=== PATIENT | male | born 1930 | race American Indian/Alaskan Native ===

== ENCOUNTER 2017-10-04 12:57 | Inpatient (IN) | payer MEDICARE ==
[2017-10-04 12:58] VITALS: BMI 23.0
[2017-10-04] MEDS ORDERED: Valproate 1,000 MG in Sodium Chloride 0.9% 100 ML IVPB STA (13:08)
--- NOTE | 2017-10-04 13:14 | EDPD ---
HPI Stroke - General Time Seen by Provider: 10/04/17 12:58 Historian: Family, EMS - History of Present Illness Narrative History of Present Illness (Free Text): 10/04/17 13:10 86 year old male, with past medical history of dementia, hypertension, scrotal hernia, metastatic cancer to bone, prostrate cancer, hypoglycemia, pneumonia and hip fracture, presents to the Emergency department via EMS for left sided facial twitching and decrease in mental status an hour ago. As per EMS, patient was found by daughter at home who noticed left sided facial twitching and decrease in mental status. Upon arrival of EMS, patient was supposedly symptomatic and demonstrated difficulty communicating. Code stroke was called pre-arrival to patient. Immediate evaluation performed upon arrival of patient to the Emergency department. As per daughter, patient was discharged from [facility] for decubitus on lower back two days ago. Daughter denies any slurred speech, unilateral weakness, fever, chills, nausea, vomiting, abdominal pain, chest pain, shortness of breath or any other complaints. Timing: Other (questionable symptoms) Context: Home Associated Symptoms: other (left sided twitching) Exacerbated by: Nothing Relieved by: Nothing - Location Location: Mental Status Locate Left: Face rTPA Inclusion/Exclusion - Refusal of Treatment Patient Refused Treatment: No - Inclusion Criteria for Altepase Patient is 18 years or Older: Yes The Clinical Diagnosis of Ischemic Stroke That is Causing a Potentially Disabling Neurological Deficit: No Time of Onset is Well Established to be Less Than 270 Minute Before Treatment Would Begin: Yes Risk/Benefit Discussed With Patient/Family Member Present: No Past Medical History - Provider Review Nursing Documentation Reviewed: Yes - Cardiac Hx Hypertension: Yes Hx Peripheral Edema: Yes - Pulmonary Hx Respiratory Disorders: No - Neurological Hx Neurological Disorder: No - HEENT Hx HEENT Disorder: No - Renal Hx Renal Disorder: No - Endocrine/Metabolic Hx Endocrine Disorders: Yes Hx Diabetes Mellitus Type 2: Yes - Hematological/Oncological Hx Blood Disorders: Yes Hx Cancer: Yes (prostate) - Integumentary Hx Dermatological Disorder: No - Musculoskeletal/Rheumatological Hx Falls: Yes - Gastrointestinal Hx Gastrointestinal Disorders: No - Genitourinary/Gynecological Hx Genitourinary Disorders: Yes (URINARY FREQUENCY) Hx Prostate Cancer: Yes - Psychiatric Hx Substance Use: No - Anesthesia Hx Anesthesia: No Hx Anesthesia Reactions: No - Suicidal Assessment Feels Threatened In Home Enviroment: No Family/Social History - Family/Social History Family History: Non-Contributory Allergies/Home Meds Allergies/Adverse Reactions: Allergies No Known Allergies Allergy (Verified 10/04/17 13:26) Home Medications: Home Meds Medication Instructions Recorded Confirmed Acetaminophen [Tylenol (Renal)] 2 tab PO PRN PRN 10/04/17 10/04/17 Aspirin [Aspirin Chewable] 81 mg PO DAILY 10/04/17 10/04/17 Carvedilol [Coreg] 25 mg PO BID 10/04/17 10/04/17 Docusate [Colace] 100 mg PO HS 10/04/17 10/04/17 Dronabinol [Marinol] 5 mg PO DAILY 10/04/17 10/04/17 Famotidine [Pepcid] 40 mg PO DAILY 10/04/17 10/04/17 Ferrous Sulfate [Feosol] 325 mg PO TID 10/04/17 10/04/17 Ipratropium 0.02% [Atrovent] 0.5 mg IH Q4 10/04/17 10/04/17 Isosorbide Dinitrate [Isordil] 10 mg PO Q8 10/04/17 10/04/17 Lisinopril [Zestril] 10 mg PO DAILY 10/04/17 10/04/17 Mirtazapine [Remeron] 15 mg PO HS 10/04/17 10/04/17 Piperacillin Sodium/Tazobactam 3.375 gm IV Q8 10/04/17 10/04/17 [Piperacil-Tazobact 3.375 gm Vl] Tamsulosin [Flomax] 0.4 mg PO DAILY 10/04/17 10/04/17 amLODIPine [Norvasc] 1 tab PO DAILY 10/04/17 10/04/17 cloNIDine [clonidine HCl] 0.2 mg PO TID 10/04/17 10/04/17 hydrALAZINE [hydralazine 50 mg PO TID 10/04/17 10/04/17 Hydrochloride] metFORMIN [glucOPHAGE] 500 mg PO BID 10/04/17 10/04/17 Review of Systems - Physician Review All systems were reviewed & negative as marked: Yes - Review of Systems Systems not reviewed;Unavailable: Dementia (from recent hospitalization) Constitutional: Other (weak) Respiratory: Normal. absent: SOB Cardiovascular: Normal. absent: Chest Pain Gastrointestinal: Normal. absent: Abdominal Pain, Diarrhea, Nausea, Vomiting Skin: Normal Neurological: Other (left sided facial twitching.) ED Stroke Physical Exam Temperature: Febrile (low grade temperature) Appearance: Positive for: Other (questionable left sided facial droop. Mildly dehydrated.) Mental Status: Positive for: Lethargic (awake but lethargic) - Systems Exam Head: Present: Atraumatic, Normocephalic Pupils: Present: PERRL Extroacular Muscles: Present: EOMI Conjunctiva: Present: Normal Mouth: Present: Moist Mucous Membranes Neck: Present: Other (Torticollis cuasing patient's head to move to left.) Respiratory/Chest: Present: Clear to Auscultation, Good Air Exchange. No: Respiratory Distress, Accessory Muscle Use Cardiovascular: Present: Regular Rate and Rhythm, Normal S1, S2. No: Murmurs Abdomen: Present: Normal Bowel Sounds. No: Tenderness, Distention, Peritoneal Signs Genitourinary Male: Present: Normal External Genitalia Back: Present: GCS, CN, SP Upper Extremity: Present: Normal Inspection. No: Cyanosis, Edema Lower Extremity: Present: Normal Inspection. No: Edema Neurologic: Present: Speech Normal (response to simple commands), Facial Droop ( questionable left sided facial droop.), Other (leaning head to left. Non-focal.) Skin: Present: Warm, Dry, Other (Large decubitus lower back. Appears to be clean and non-draining. ). No: Rashes Lymphatic: Present: OX3, NI, NC Psychiatric: Present: Alert (to name), Lethargic (probable for metabolic reasons for generalized weakness.) Medical Decision Making ED Course and Treatment: 10/04/17 13:00 Impression: 86 year old male presents to the Emergency department for possible stroke. Plan: -- CT of Head -- EKG -- Labs -- Chest X-ray -- Valproate -- Urinalysis -- Reassess and disposition Progress Notes: 10/04/17 12:48 Code stroke called. 10/04/17 12:58 Patient arrived to the Emergency department. Taken immediately for CT scan. Waiting on results of CT scan. 10/04/17 13:04 Discussed case with neurologist, Dr. Johansen, who is aware of the patient's conditions and believes patient is not a tPA candidate. Dr. Johansen requests administration of depakote for the patient a this moment. 10/04/17 13:15 CT of head reviewed by radiologist, shows no acute intracranial abnormalities. No significant findings to account for the clinical presentation. 10/04/17 13:[address] of head results, patient is confirmed to not be a candidate for tPA. Will admit patient to the hospital for further evaluation and treatment. 10/04/17 14:33 Chest X-ray reviewed by radiologist, shows large left pleural effusion/left lower lobe infiltrate. Suspicious findings for sclerotic metastatic disease thoracolumbar spine. - Critical Care Critical Care Minutes: 60 minutes - RAD Interpretation Radiology Orders: 10/04/17 12:59 HEAD W/O (CODE STROKE) [CT] Stat - Scribe Statement The provider has reviewed the documentation as recorded by the Scribe Zain Meier. All medical record entries made by the Scribe were at my direction and personally dictated by me. I have reviewed the chart and agree that the record accurately reflects my personal performance of the history, physical exam, medical decision making, and the department course for this patient. I have also personally directed, reviewed, and agree with the discharge instructions and disposition. NIHSS Scale ([place]) - Notes Notes: NIH scale not performed because patient does not participate. Disposition/Present on Arrival - Present on Arrival Any Indicators Present on Arrival: No History of DVT/PE: No History of Uncontrolled Diabetes: No Urinary Catheter: Yes History of Decub. Ulcer: Yes History Surgical Site Infection Following: None - Disposition Have Diagnosis and Disposition been Completed?: Yes Diagnosis: Pneumonia, Prostate cancer, Metastatic cancer to bone, Decubitus skin ulcer Disposition: HOSPITALIZED Disposition Time: 16:15 Patient Plan: Admission Patient Problems: Current Active Problems Problem Status Onset Decubitus skin ulcer Acute Metastatic cancer to bone Acute Pneumonia Acute Prostate cancer Acute Condition: SERIOUS Referrals: [id number] T[facility] Nye, [Non-Staff] - Follow up with primary
--- NOTE | 2017-10-04 13:21 | CT ---
PROCEDURE: CT HEAD WITHOUT CONTRAST. HISTORY: left side weakness COMPARISON: None available. TECHNIQUE: Axial computed tomography images were obtained through the head/brain without intravenous contrast. Radiation dose: Total exam DLP = all 1157.37 mGy-cm. This CT exam was performed using one or more of the following dose reduction techniques: Automated exposure control, adjustment of the mA and/or kV according to patient size, and/or use of iterative reconstruction technique. FINDINGS: HEMORRHAGE: No intracranial hemorrhage. BRAIN: No mass effect or edema. Cortical atrophy, periventricular small vessel disease VENTRICLES: Unremarkable. No hydrocephalus. CALVARIUM: Unremarkable. PARANASAL SINUSES: Unremarkable as visualized. No significant inflammatory changes. MASTOID AIR CELLS: Unremarkable as visualized. No inflammatory changes. OTHER FINDINGS: None. IMPRESSION: No acute intracranial abnormalities. No significant findings to account for the clinical presentation. Code stroke protocol: Study completed 13:11 Radiologist notified 13:14 Results conveyed verbally at 13:19 I discussed the findings with the attending urologist at the time of this interpretation. Interpretation finalized and available for review 13:21
--- NOTE | 2017-10-04 13:53 | CP.PCM.CON ---
History of Present Illness - History of Present Illness History of Present Illness: 86 yr old male, called as a code stroke, brought from home when it was noted that he had left facial twitching, with change in mental status. He does not have a history of epilepsy, but does have extensive pmh including, severe dementia, htn, dm, metastatic prostate ca, hyperlipidemia, hip fracture, s/p large decubiti ( recently discharged from [facility]), with baseline torticollis, cervical spine disease who is twitching his left arm on exam but awake. NIH stroke scale: not able to determine because patient does not participate. On exam: awake, confused, lethargic. Poor dentition. EOMI. Pupils 3mm-2mm with light. He does not really follow commands, nor does he have verbal output. No meningismus. . does not move limbs spontaneously. +2 dtr ul and ll bl. Toes silent. no clonus Increased tone diffusely. 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 Past Patient History - Past Medical History & Family History Past Medical History?: Yes - Past Social History Smoking Status: Unknown If Ever Smoked - CARDIAC Hx Hypercholesterolemia: Yes Hx Hypertension: Yes Hx Peripheral Edema: Yes - PULMONARY Hx Respiratory Disorders: No - NEUROLOGICAL Hx Neurological Disorder: No - HEENT Hx HEENT Problems: No - RENAL Hx Chronic Kidney Disease: No - ENDOCRINE/METABOLIC Hx Endocrine Disorders: Yes Hx Diabetes Mellitus Type 2: Yes - HEMATOLOGICAL/ONCOLOGICAL Hx Blood Disorders: Yes Hx Cancer: Yes (prostate) - INTEGUMENTARY Hx Dermatological Problems: No - MUSCULOSKELETAL/RHEUMATOLOGICAL Hx Falls: Yes - GASTROINTESTINAL Hx Gastrointestinal Disorders: No - GENITOURINARY/GYNECOLOGICAL Hx Genitourinary Disorders: Yes (URINARY FREQUENCY) Hx Prostate Cancer: Yes - PSYCHIATRIC Hx Substance Use: No - SURGICAL HISTORY Hx Surgeries: No - ANESTHESIA Hx Anesthesia: No Hx Anesthesia Reactions: No Meds Allergies/Adverse Reactions: Allergies Allergy/AdvReac Type Severity Reaction Status Date / Time No Known Allergies Allergy Verified 10/04/17 13:26 Results - Imaging and Cardiology CT scan - head Status: Image reviewed by me, Report reviewed by me (Ct head shows severe atrophy and old lacunar infarcts. ) Assessment & Plan - Assessment and Plan (Free Text) Assessment: 86 yr old male with new onset focal twitching, that appears to be focal seizure, now resolved, right face homunculus region, (frontal) with who is not TPA candidate. We will admit him, and order MRI brain with contrast, and start depakote for seizure. Plan: 1. Echo, carotid dopplers 2. CTA, Mri brain without contrast 3. EEG on friday 4. aspirin 5. continue depakote at 500 md bid. thank you, our team will follow.
[2017-10-04 14:09] LABS: BASO # 0.01 K/mm3 (0.0-2.0); BASO % 0.1 % (0.0-3.0); EOS # 0.1 (0.0-0.7); EOS % 1.3 % (1.5-5.0); GRAN # 5.49 (1.4-6.5); GRAN % 69.6 % (50.0-68.0); HEMOGLOBIN 9.5 g/dL (14.0-18.0); LYMPH # 1.6 (1.2-3.4); LYMPH % 20.1 % (22.0-35.0); MEAN CELL VOLUME 87.2 fl (80.0-105.0); MEAN CORPUSCULAR HEMOGLOBIN 27.7 pg (25.0-35.0); MEAN CORPUSCULAR HGB CONC 31.8 g/dl (31.0-37.0); MEAN PLATELET VOLUME 8.7 fl (7.0-11.0); MONO # 0.7 (0.1-0.6); MONO % 8.9 % (1.0-6.0); RBC 3.43 10^6/uL (3.5-6.1); RED CELL DISTRIBUTION WIDTH 18.2 % (11.5-14.5); WHITE BLOOD COUNT 7.9 10^3/ul (4.5-11.0)
[2017-10-04] MEDS ORDERED: Sodium Chloride 0.9% 2,500 ML IV STA (14:11)
[2017-10-04] MEDS ORDERED: Ciprofloxacin 400mg/200ml D5W 400 MG/200 ML BAG IVPB STA (14:16)
[2017-10-04] MEDS ORDERED: Cefepime 1gm in NS 100ml 1 GM/100 ML BAG IVPB STA (14:16)
[2017-10-04 14:25] LABS: INR 1.17 (0.93-1.08); PARTIAL THROMBOPLASTIN TIME 27.1 Seconds (25.1-36.5); PROTHROMBIN TIME 13.4 SECONDS (9.4-12.5)
--- NOTE | 2017-10-04 14:29 | RAD ---
HISTORY: stroke COMPARISON: No prior. FINDINGS: LUNGS: Large left lower lobe and probable left upper lobe infiltrate. No active pulmonary disease. PLEURA: Large left pleural effusion. CARDIOVASCULAR: No radiographic findings to suggest acute or significant cardiovascular disease. OSSEOUS STRUCTURES: Sclerotic osseous structures particularly thoracolumbar spine raise possibility of metastatic disease. No additional, cooperative studies available. VISUALIZED UPPER ABDOMEN: Normal. OTHER FINDINGS: None. IMPRESSION: Large left pleural effusion/left lower lobe infiltrate Suspicious findings for sclerotic metastatic disease thoracolumbar spine.
[2017-10-04 14:33] LABS: TROPONIN I 0.05 ng/mL
[2017-10-04 14:39] LABS: VENOUS BLOOD GAS PO2 48 mm/Hg (30-55); VENOUS BLOOD PH 7.48 (7.32-7.43)
[2017-10-04 14:40] LABS: ALB/GLOB RATIO 0.7 (1.1-1.8); ALBUMIN 2.4 g/dL (3.0-4.8); ALT/SGPT 28 U/L (7-56); AST/SGOT 42 U/L (17-59); BLOOD UREA NITROGEN 17 mg/dL (7-21); CALCIUM 8.2 mg/dL (8.4-10.5); GFR AFRICAN-AMERICAN > 60; GFR NON-AFRICAN AMERICAN > 60
[2017-10-04 15:01] LABS: URINE BILIRUBIN NEGATIVE (NEGATIVE); URINE BLOOD MODERATE (NEGATIVE); URINE GLUCOSE (UA) NEGATIVE (NEGATIVE); URINE LEUKOCYTE ESTERASE LARGE Leu/uL (NEGATIVE); URINE NITRATE NEGATIVE (NEGATIVE); URINE PROTEIN TRACE mg/dL (<30 mg/dL); URINE UROBILINOGEN 0.2 E.U./dL (<1 E.U./dL)
[2017-10-04 15:05] LABS: URINE COLOR YELLOW (YELLOW)
[2017-10-04 15:06] LABS: URINE APPEARANCE SLIGHT-CLOUDY (CLEAR)
[2017-10-04 15:10] LABS: URINE RBC TNTC /hpf (0-2); URINE WBC TNTC /hpf (0-6)
[2017-10-04 15:11] LABS: ARTERIAL BLOOD GAS HCO3 26.1 mmol/L (21-28); ARTERIAL BLOOD GAS HEMOGLOBIN 8.7 g/dL (11.7-17.4); ARTERIAL BLOOD GAS O2 CAPACITY 11.9 mL/dl (16-24); ARTERIAL BLOOD GAS O2 CONTENT 11.3 ML/dl (15-23); ARTERIAL BLOOD GAS O2 SAT 95.3 % (95-98); ARTERIAL BLOOD GAS PCO2 35 mm/Hg (35-45); ARTERIAL BLOOD GAS PH 7.48 (7.35-7.45); ARTERIAL BLOOD GAS TCO2 27.2 mmol.L (22-28)
--- NOTE | 2017-10-04 16:32 | CARD ---
APPROVED REPORT EKG Measurement Heart [id number] ID [id number] <Conclusion> Sinus rhythm with occasional premature ventricular complexes Left axis deviation Right bundle branch block Anteroseptal infarct, age undetermined Abnormal ECG
[2017-10-05] MEDS ORDERED: Sodium Chloride 0.45% 1,000 ML IV SCH (01:30)
[2017-10-05] MEDS: Ipratropium 0.02% Inhal Soln (0.5 mg/2.5 ml) UD IH SCH ×4 (07:22→19:24)
[2017-10-05] MEDS: Insulin Reg-LOW-Coverage SC SCH ×4 (07:52→22:15)
[2017-10-05] MEDS ORDERED: Ciprofloxacin 400mg/200ml D5W 400 MG/200 ML BAG IVPB SCH (10:00)
[2017-10-05] MEDS: Divalproex 500 mg DR(BID formulation) PO SCH ×2 (10:08→18:18)
[2017-10-05] MEDS: Cefepime 1gm in NS 100ml 1 GM/100 ML BAG IVPB SCH ×2 (10:46→21:26)
--- NOTE | 2017-10-05 12:25 | CP.PCM.HP ---
Past Patient History - Infectious Disease Hx of Infectious Diseases: None - Past Medical History & Family History Past Medical History?: Yes - Past Social History Smoking Status: Never Smoked - CARDIAC Hx Hypertension: Yes Hx Peripheral Edema: Yes - PULMONARY Hx Respiratory Disorders: No - NEUROLOGICAL Hx Neurological Disorder: Yes Hx Dementia: Yes - HEENT Hx HEENT Problems: No - RENAL Hx Chronic Kidney Disease: No - ENDOCRINE/METABOLIC Hx Endocrine Disorders: Yes Hx Diabetes Mellitus Type 2: Yes - HEMATOLOGICAL/ONCOLOGICAL Hx Blood Disorders: Yes Hx Cancer: Yes (prostate) - INTEGUMENTARY Hx Dermatological Problems: No - MUSCULOSKELETAL/RHEUMATOLOGICAL Hx Falls: Yes Hx Fractures: Yes (hip) - GASTROINTESTINAL Hx Gastrointestinal Disorders: No - GENITOURINARY/GYNECOLOGICAL Hx Genitourinary Disorders: Yes (URINARY FREQUENCY) - PSYCHIATRIC Hx Psychophysiologic Disorder: No - SURGICAL HISTORY Hx Surgeries: No - ANESTHESIA Hx Anesthesia: No Hx Anesthesia Reactions: No Meds Allergies/Adverse Reactions: Allergies Allergy/AdvReac Type Severity Reaction Status Date / Time No Known Allergies Allergy Verified 10/04/17 13:26 Results - Vital Signs Recent Vital Signs: Last Vital Signs Temp 98.7 F 10/05/17 07:47 Pulse 76 10/05/17 07:47 Resp 18 10/05/17 07:47 BP 170/80 H 10/05/17 07:47 Pulse Ox 99 10/05/17 07:47 - Labs Result Diagrams: 10/04/17 13:45 10/04/17 13:45 Labs: Laboratory Results - last 24 hr 10/05/17 10/05/17 07:04 11:08 POC Glucose (mg/dL) 119 H 128 H Assessment & Plan (1) Prostate cancer metastatic to bone Status: Acute (2) Decubitus skin ulcer Status: Acute (3) Pneumonia Status: Acute (4) Altered mental status Assessment and Plan: Hypernatremia, Sezure IVF Status: Acute
--- NOTE | 2017-10-05 12:29 | CP.PCM.PCO ---
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
[2017-10-05] MEDS: Vancomycin 1gm in NS 250ml 1 GM/250 ML BAG IVPB SCH (13:34)
[2017-10-05] MEDS: Oxychlorosene Topical 2 gm Packet TOP SCH (14:33)
--- NOTE | 2017-10-05 19:59 | CP.PCM.CON ---
History of Present Illness - History of Present Illness History of Present Illness: Infectious Disease Consultation: October 05, 2017 86 yo male brought in as a code stroke after found at home with AMS and left facial twitching. Extensive past medical history of Dementia, HTN, DM, metastatic prostate cancer, hyperlipidemia, cervical spine disease, baseline torticolis, large decubiti, and hip fractures. Unable to obtain any information from the patient. PMHx: Dementia, HTN, DM, metastatic prostate cancer, hyperlipidemia, cervical spine disease, baseline torticolis, large decubiti, and hip fractures PSHx: Unable to obtain information Allergies: NKDA Social Hx: To my knowledge, no tobacco, EtOH, or illicit drug use Active Medications Acetaminophen (Tylenol 325mg Tab) 650 mg PO Q4 PRN PRN Reason: Pain, Mild (1-3) Amlodipine Besylate (Norvasc) 5 mg PO DAILY [facility] Last Admin: 10/05/17 10:09 Dose: Not Given Aspirin (Aspirin Chewable) 81 mg PO DAILY [facility] Last Admin: 10/05/17 10:07 Dose: Not Given Carvedilol (Coreg) 25 mg PO BID [facility] Last Admin: 10/05/17 18:17 Dose: Not Given Clonidine HCl (Catapres) 0.2 mg PO TID [facility] Last Admin: 10/05/17 18:17 Dose: Not Given Divalproex Sodium (Depakote Dr(*Bid*)) 500 mg PO BID [facility] PRN Reason: Protocol Last Admin: 10/05/17 18:18 Dose: Not Given Docusate Sodium (Colace) 100 mg PO HS [facility] Dronabinol (Marinol) 5 mg PO DAILY [facility] Last Admin: 10/05/17 10:09 Dose: Not Given Famotidine (Pepcid) 40 mg PO DAILY [facility] Last Admin: 10/05/17 10:10 Dose: Not Given Ferrous Sulfate (Feosol) 324 mg PO TID [facility] Last Admin: 10/05/17 18:18 Dose: Not Given Heparin Sodium (Porcine) (Heparin) 5,000 units SC Q8 [facility] PRN Reason: Protocol Last Admin: 10/05/17 13:34 Dose: 5,000 units Hydralazine HCl (Apresoline) 50 mg PO TID [facility] Last Admin: 10/05/17 18:17 Dose: Not Given Cefepime HCl (Maxipime 1gm) 1 gm in 100 mls @ 100 mls/hr IVPB Q12 [facility] PRN Reason: Protocol Last Admin: 10/05/17 10:46 Dose: 100 mls/hr Sodium Chloride (Sodium Chloride 0.45%) 1,000 mls @ 100 mls/hr IV .Q10H [facility] Last Admin: 10/05/17 01:55 Dose: 100 mls/hr Vancomycin HCl (Vancomycin 1gm) 1 gm in 250 mls @ 167 mls/hr IVPB Q12H [facility] PRN Reason: Protocol Last Admin: 10/05/17 13:34 Dose: 167 mls/hr Levetiracetam (Keppra 500mg Ivpb) 500 mg in 100 mls @ 400 mls/hr IV Q12 [facility] Insulin Human Regular (Humulin R Low) 0 units SC ACHS [facility] PRN Reason: Protocol Last Admin: 10/05/17 16:04 Dose: Not Given Ipratropium [place] (Atrovent) 0.5 mg IH [id number] [facility] Last Admin: 10/05/17 19:24 Dose: 0.5 mg Isosorbide Dinitrate (Isordil) 10 mg PO Q8 [facility] Last Admin: 10/05/17 14:34 Dose: Not Given Lisinopril (Zestril) 10 mg PO DAILY [facility] Last Admin: 10/05/17 10:10 Dose: Not Given Metformin HCl (Glucophage) 500 mg PO BID [facility] Last Admin: 10/05/17 18:18 Dose: Not Given Mirtazapine (Remeron) 15 mg PO HS [facility] Oxychlorosene Sodium (Clorpactin Wcs-90) 2 gm TOP Q12H [facility] Last Admin: 10/05/17 14:33 Dose: 2 gm Tamsulosin HCl (Flomax) 0.4 mg PO DAILY [facility] Last Admin: 10/05/17 10:08 Dose: Not Given Family Hx: unable to obtain ROS: Unable to Obtain Past Patient History - Infectious Disease Hx of Infectious Diseases: None - Past Medical History & Family History Past Medical History?: Yes - Past Social History Smoking Status: Never Smoked - CARDIAC Hx Hypertension: Yes - PULMONARY Hx Respiratory Disorders: No - NEUROLOGICAL Hx Neurological Disorder: Yes Hx Dementia: Yes - HEENT Hx HEENT Problems: No - RENAL Hx Chronic Kidney Disease: No - ENDOCRINE/METABOLIC Hx Endocrine Disorders: Yes Hx Diabetes Mellitus Type 2: Yes - HEMATOLOGICAL/ONCOLOGICAL Hx Blood Disorders: Yes Hx Cancer: Yes (prostate) - INTEGUMENTARY Hx Dermatological Problems: No - MUSCULOSKELETAL/RHEUMATOLOGICAL Hx Falls: Yes Hx Fractures: Yes (hip) - GASTROINTESTINAL Hx Gastrointestinal Disorders: No - GENITOURINARY/GYNECOLOGICAL Hx Genitourinary Disorders: Yes (URINARY FREQUENCY) - PSYCHIATRIC Hx Psychophysiologic Disorder: No - SURGICAL HISTORY Hx Surgeries: No - ANESTHESIA Hx Anesthesia: No Hx Anesthesia Reactions: No Meds Allergies/Adverse Reactions: Allergies Allergy/AdvReac Type Severity Reaction Status Date / Time No Known Allergies Allergy Verified 10/04/17 13:26 - Medications Medications: Current Medications Acetaminophen (Tylenol 325mg Tab) 650 mg PO Q4 PRN PRN Reason: Pain, Mild (1-3) Amlodipine Besylate (Norvasc) 5 mg PO DAILY [facility] Last Admin: 10/05/17 10:09 Dose: Not Given Aspirin (Aspirin Chewable) 81 mg PO DAILY [facility] Last Admin: 10/05/17 10:07 Dose: Not Given Carvedilol (Coreg) 25 mg PO BID [facility] Last Admin: 10/05/17 18:17 Dose: Not Given Clonidine HCl (Catapres) 0.2 mg PO TID [facility] Last Admin: 10/05/17 18:17 Dose: Not Given Divalproex Sodium (Depakote Dr(*Bid*)) 500 mg PO BID [facility] PRN Reason: Protocol Last Admin: 10/05/17 18:18 Dose: Not Given Docusate Sodium (Colace) 100 mg PO [facility] Dronabinol (Marinol) 5 mg PO DAILY [facility] Last Admin: 10/05/17 10:09 Dose: Not Given Famotidine (Pepcid) 40 mg PO DAILY [facility] Last Admin: 10/05/17 10:10 Dose: Not Given Ferrous Sulfate (Feosol) 324 mg PO TID [facility] Last Admin: 10/05/17 18:18 Dose: Not Given Heparin Sodium (Porcine) (Heparin) 5,000 units SC Q8 [facility] PRN Reason: Protocol Last Admin: 10/05/17 13:34 Dose: 5,000 units Hydralazine HCl (Apresoline) 50 mg PO TID [facility] Last Admin: 10/05/17 18:17 Dose: Not Given Cefepime HCl (Maxipime 1gm) 1 gm in 100 mls @ 100 mls/hr IVPB Q12 [facility] PRN Reason: Protocol Last Admin: 10/05/17 10:46 Dose: 100 mls/hr Sodium Chloride (Sodium Chloride 0.45%) 1,000 mls @ 100 mls/hr IV .Q10H [facility] Last Admin: 10/05/17 01:55 Dose: 100 mls/hr Vancomycin HCl (Vancomycin 1gm) 1 gm in 250 mls @ 167 mls/hr IVPB Q12H [facility] PRN Reason: Protocol Last Admin: 10/05/17 13:34 Dose: 167 mls/hr Levetiracetam (Keppra 500mg Ivpb) 500 mg in 100 mls @ 400 mls/hr IV Q12 [facility] Insulin Human Regular (Humulin R Low) 0 units SC ACHS [facility] PRN Reason: Protocol Last Admin: 10/05/17 16:04 Dose: Not Given Ipratropium [place] (Atrovent) 0.5 mg IH [id number] [facility] Last Admin: 10/05/17 19:24 Dose: 0.5 mg Isosorbide Dinitrate (Isordil) 10 mg PO Q8 [facility] Last Admin: 10/05/17 14:34 Dose: Not Given Lisinopril (Zestril) 10 mg PO DAILY [facility] Last Admin: 10/05/17 10:10 Dose: Not Given Metformin HCl (Glucophage) 500 mg PO BID [facility] Last Admin: 10/05/17 18:18 Dose: Not Given Mirtazapine (Remeron) 15 mg PO HS [facility] Oxychlorosene Sodium (Clorpactin Wcs-90) 2 gm TOP Q12H [facility] Last Admin: 10/05/17 14:33 Dose: 2 gm Tamsulosin HCl (Flomax) 0.4 mg PO DAILY [facility] Last Admin: 10/05/17 10:08 Dose: Not Given Physical Exam - Constitutional Appears: Chronically Ill - Head Exam Head Exam: ATRAUMATIC, NORMOCEPHALIC - Eye Exam Eye Exam: EOMI, PERRL Pupil Exam: NORMAL ACCOMODATION, PERRL - ENT Exam ENT Exam: Mucous Membranes Moist, Normal External Ear Exam, TM's Normal Bilaterally - Neck Exam Additional comments: torticolis - Respiratory Exam Respiratory Exam: Decreased Breath Sounds, NORMAL BREATHING PATTERN. absent: Rales, Rhonchi, Wheezes Additional comments: Left lower lobe infiltrate. - Cardiovascular Exam Cardiovascular Exam: REGULAR RHYTHM, RRR, +S1, +S2 - GI/Abdominal Exam GI & Abdominal Exam: Normal Bowel Sounds, Soft. absent: Distended, Tenderness - Extremities Exam Extremities exam: Positive for: full ROM, normal inspection - Neurological Exam Additional comments: general weakness. Left facial twitching. Confused. Poorly responsive. - Skin Additional comments: Stage III sacral decubiti. Results - Vital Signs Recent Vital Signs: Last Vital Signs Temp 97.3 F L 10/05/17 16:00 Pulse 73 10/05/17 16:00 Resp 19 10/05/17 16:00 BP 168/88 H 10/05/17 16:00 Pulse Ox 97 10/05/17 16:00 - Labs Result Diagrams: 10/04/17 13:45 10/04/17 13:45 Labs: Laboratory Results - last 24 hr 10/05/17 10/05/17 10/05/17 07:04 11:08 16:00 POC Glucose (mg/dL) 119 H 128 H 124 H Assessment & Plan - Assessment and Plan (Free Text) Assessment: 86 yo male with AMS and left facial twitching found at home. The patient has an extensive medical history that includes Dementia, HTN, DM, metastatic prostate cancer, hyperlipidemia, cervical spine disease, baseline torticolis, large decubiti, and hip fractures. The patient Chest X-ray shows left lower lobe pneumonia. Also has a sacral decubiti ulcer stage III. Seen my Neurology and Surgery. On Cefepime and IV Vancomycin for antibiotic coverage. Supportive care. Story cultures sent. Spoke with Dr. Emanuel. Thank you for allowing me to particiapte in the care of the patient, we will follow with you.
[2017-10-05] MEDS: levETIRAcetam 500mg IVPB 500 MG/100 ML BAG IV SCH (21:26)
[2017-10-06] MEDS: Ipratropium 0.02% Inhal Soln (0.5 mg/2.5 ml) UD IH SCH ×6 (00:50→19:52)
[2017-10-06] MEDS: Vancomycin 1gm in NS 250ml 1 GM/250 ML BAG IVPB SCH ×2 (01:30→18:37)
[2017-10-06] MEDS: Oxychlorosene Topical 2 gm Packet TOP SCH ×2 (02:15→14:15)
[2017-10-06] MEDS: Insulin Reg-LOW-Coverage SC SCH ×4 (07:30→21:10)
[2017-10-06 07:43] LABS: BASO # 0.01 K/mm3 (0.0-2.0); BASO % 0.2 % (0.0-3.0); EOS # 0.1 (0.0-0.7); EOS % 2.3 % (1.5-5.0); GRAN # 3.6 (1.4-6.5); GRAN % 67.5 % (50.0-68.0); HEMOGLOBIN 8.4 g/dL (14.0-18.0); LYMPH # 1.1 (1.2-3.4); LYMPH % 21.4 % (22.0-35.0); MEAN CELL VOLUME 86.2 fl (80.0-105.0); MEAN CORPUSCULAR HEMOGLOBIN 27.5 pg (25.0-35.0); MEAN CORPUSCULAR HGB CONC 31.9 g/dl (31.0-37.0); MEAN PLATELET VOLUME 8.5 fl (7.0-11.0); MONO # 0.5 (0.1-0.6); MONO % 8.6 % (1.0-6.0); RBC 3.05 10^6/uL (3.5-6.1); RED CELL DISTRIBUTION WIDTH 17.7 % (11.5-14.5); WHITE BLOOD COUNT 5.3 10^3/ul (4.5-11.0)
[2017-10-06 08:16] LABS: BLOOD UREA NITROGEN 15 mg/dL (7-21); CALCIUM 7.8 mg/dL (8.4-10.5); GFR AFRICAN-AMERICAN > 60; GFR NON-AFRICAN AMERICAN > 60
[2017-10-06] MEDS ORDERED: Dextrose 5%/0.45% NS 1,000 ML IV SCH (09:30)
[2017-10-06] MEDS: Divalproex 500 mg DR(BID formulation) PO SCH (10:00)
[2017-10-06] MEDS: Cefepime 1gm in NS 100ml 1 GM/100 ML BAG IVPB SCH ×2 (10:00→21:13)
[2017-10-06] MEDS: levETIRAcetam 500mg IVPB 500 MG/100 ML BAG IV SCH (10:41)
--- NOTE | 2017-10-06 14:16 | CP.PCM.PN ---
Subjective - Date & Time of Evaluation Date of Evaluation: 10/06/17 Time of Evaluation: 14:13 - Subjective Subjective: Mr. Hernandez was seen and examined at the bedside. He is awake but non responsive. He is unable to answer or follow commands. There was no untoward events overnight. Objective - Vital Signs/Intake and Output Vital Signs (last 24 hours): Temp Pulse Resp BP Pulse Ox 97.9 F 75 18 160/93 H 99 10/06/17 08:48 10/06/17 08:48 10/06/17 08:48 10/06/17 08:48 10/06/17 08:48 Intake and Output: 10/06/17 10/06/17 06:59 18:59 Intake Total 0 Output Total 625 300 Balance -625 -300 - Medications Medications: Current Medications Acetaminophen (Tylenol 325mg Tab) 650 mg PO Q4 PRN PRN Reason: Pain, Mild (1-3) Amlodipine Besylate (Norvasc) 5 mg PO DAILY [facility] Last Admin: 10/06/17 10:00 Dose: Not Given Aspirin (Aspirin Supp) 300 mg RC DAILY [facility] Carvedilol (Coreg) 25 mg PO BID [facility] Last Admin: 10/06/17 10:00 Dose: Not Given Clonidine HCl (Catapres) 0.2 mg PO TID [facility] Last Admin: 10/06/17 10:00 Dose: Not Given Docusate Sodium (Colace) 100 mg PO HS [facility] Last Admin: 10/05/17 22:15 Dose: Not Given Dronabinol (Marinol) 5 mg PO DAILY [facility] Last Admin: 10/06/17 10:00 Dose: Not Given Famotidine (Pepcid) 40 mg PO DAILY [facility] Last Admin: 10/06/17 10:00 Dose: Not Given Ferrous Sulfate (Feosol) 324 mg PO TID [facility] Last Admin: 10/06/17 10:00 Dose: Not Given Heparin Sodium (Porcine) (Heparin) 5,000 units SC Q8 [facility] PRN Reason: Protocol Last Admin: 10/06/17 05:37 Dose: 5,000 units Hydralazine HCl (Apresoline) 50 mg PO TID [facility] Last Admin: 10/06/17 10:00 Dose: Not Given Cefepime HCl (Maxipime 1gm) 1 gm in 100 mls @ 100 mls/hr IVPB Q12 [facility] PRN Reason: Protocol Last Admin: 10/05/17 21:26 Dose: 100 mls/hr Vancomycin HCl (Vancomycin 1gm) 1 gm in 250 mls @ 167 mls/hr IVPB Q12H [facility] PRN Reason: Protocol Last Admin: 10/06/17 01:30 Dose: 167 mls/hr Dextrose/Sodium Chloride (Dextrose 5%/0.45% Ns 1000 Ml) 1,000 mls @ 125 mls/hr IV .Q8H [facility] Potassium Chloride (Potassium Chloride 20 Meq/100 Ml) 20 meq in 100 mls @ 50 mls/hr IVPB Q2H [facility] Stop: 10/06/17 17:29 Last Admin: 10/06/17 11:40 Dose: 50 mls/hr Valproate Sodium 500 mg/ (Sodium Chloride) 105 mls @ 100 mls/hr IVPB Q12 [facility] Insulin Human Regular (Humulin R Low) 0 units SC ACHS [facility] PRN Reason: Protocol Last Admin: 10/06/17 12:51 Dose: Not Given Ipratropium [place] (Atrovent) 0.5 mg IH [id number] [facility] Last Admin: 10/06/17 11:27 Dose: 0.5 mg Isosorbide Dinitrate (Isordil) 10 mg PO Q8 [facility] Last Admin: 10/06/17 05:35 Dose: Not Given Lisinopril (Zestril) 10 mg PO DAILY [facility] Last Admin: 10/06/17 10:00 Dose: Not Given Metformin HCl (Glucophage) 500 mg PO BID [facility] Last Admin: 10/06/17 10:00 Dose: Not Given Mirtazapine (Remeron) 15 mg PO HS [facility] Last Admin: 10/05/17 21:27 Dose: Not Given Oxychlorosene Sodium (Clorpactin Wcs-90) 2 gm TOP Q12H [facility] Last Admin: 10/06/17 02:15 Dose: 2 gm Tamsulosin HCl (Flomax) 0.4 mg PO DAILY [facility] Last Admin: 10/06/17 10:00 Dose: Not Given - Labs Labs: 10/06/17 07:30 10/06/17 07:30 PT 13.4 SECONDS (9.4-12.5) H 10/04/17 13:45 INR 1.17 (0.93-1.08) H 10/04/17 13:45 APTT 27.1 Seconds (25.1-36.5) 10/04/17 13:45 - Constitutional Appears: No Acute Distress - Head Exam Head Exam: NORMAL INSPECTION - Eye Exam Additional comments: Pupils 3mm-2mm with light. - Neurological Exam Neurological Exam: Awake Neuro motor strength exam: Left Upper Extremity: 0, Right Upper Extremity: 0, Left Lower Extremity: 0, Right Lower Extremity: 0 Additional comments: He does not really follow commands, nor does he have verbal output. No meningismus. . does not move limbs spontaneously. +2 dtr ul and ll bl. Toes silent. no clonus Increased tone diffusely. 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 Gonzalez, continue all current medical, physical, occupational, and speech therapies. Recommend MRI of the brain, MRA of the head and neck, echocardiogram and EEG. Status: Acute
--- NOTE | 2017-10-06 17:25 | US ---
PROCEDURE: Right carotid artery duplex ultrasound HISTORY: Carotid stenosis PHYSICIAN(S): Andriy Gallardo MD. TECHNIQUE: Duplex sonography and color-flow Doppler were used to evaluate the carotid bifurcations and limited segments of the vertebral arteries bilaterally. The patient was unable to move his neck an the left carotid artery could not be evaluated. FINDINGS: There is mild hypoechoic plaque noted at the right carotid bifurcation. The peak systolic velocity in the proximal right internal carotid artery is 44 cm/second. This corresponds to a 20-39 percent proximal right ICA stenosis. Normal velocities are present in the proximal right external carotid artery. There is antegrade flow in the right vertebral artery. IMPRESSION: 1. 20-39 percent proximal right ICA stenosis. 2. The left carotid artery could not be evaluated
[2017-10-06 19:23] LABS: BLOOD UREA NITROGEN 14 mg/dL (7-21); CALCIUM 7.6 mg/dL (8.4-10.5); GFR AFRICAN-AMERICAN > 60; GFR NON-AFRICAN AMERICAN > 60
--- NOTE | 2017-10-06 22:10 | CP.PCM.PN ---
Subjective - Date & Time of Evaluation Date of Evaluation: 10/06/17 Time of Evaluation: 19:45 - Subjective Subjective: Infectious Disease Follow Up: October 06, 2017 86 yo male brought in as a code stroke after found at home with AMS and left facial twitching. Extensive past medical history of Dementia, HTN, DM, metastatic prostate cancer, hyperlipidemia, cervical spine disease, baseline torticolis, large decubiti, and hip fractures. Unable to obtain any information from the patient. No new issues. No leukocytosis. Afebrile. Objective - Vital Signs/Intake and Output Vital Signs (last 24 hours): Temp Pulse Resp BP Pulse Ox 97.9 F 91 H 19 166/89 H 97 10/06/17 08:48 10/06/17 18:40 10/06/17 16:00 10/06/17 18:40 10/06/17 16:00 Intake and Output: 10/06/17 10/07/17 18:59 06:59 Intake Total 0 Output Total 1050 Balance -1050 - Medications Medications: Current Medications Acetaminophen (Tylenol 325mg Tab) 650 mg PO Q4 PRN PRN Reason: Pain, Mild (1-3) Amlodipine Besylate (Norvasc) 5 mg PO DAILY [facility] Last Admin: 10/06/17 10:00 Dose: Not Given Aspirin (Aspirin Supp) 300 mg RC DAILY [facility] Last Admin: 10/06/17 18:40 Dose: 300 mg Carvedilol (Coreg) 25 mg PO BID [facility] Last Admin: 10/06/17 18:37 Dose: Not Given Clonidine HCl (Catapres) 0.2 mg PO TID [facility] Last Admin: 10/06/17 18:36 Dose: Not Given Docusate Sodium (Colace) 100 mg PO HS [facility] Last Admin: 10/06/17 21:03 Dose: Not Given Dronabinol (Marinol) 5 mg PO DAILY [facility] Last Admin: 10/06/17 10:00 Dose: Not Given Famotidine (Pepcid) 40 mg PO DAILY [facility] Last Admin: 10/06/17 10:00 Dose: Not Given Ferrous Sulfate (Feosol) 324 mg PO TID [facility] Last Admin: 10/06/17 18:37 Dose: Not Given Heparin Sodium (Porcine) (Heparin) 5,000 units SC Q8 [facility] PRN Reason: Protocol Last Admin: 10/06/17 21:06 Dose: 5,000 units Hydralazine HCl (Apresoline) 50 mg PO TID [facility] Last Admin: 10/06/17 18:36 Dose: Not Given Hydralazine HCl (Apresoline) 10 mg IVP Q6 [facility] Last Admin: 10/06/17 18:40 Dose: 10 mg Cefepime HCl (Maxipime 1gm) 1 gm in 100 mls @ 100 mls/hr IVPB Q12 [facility] PRN Reason: Protocol Last Admin: 10/06/17 21:13 Dose: 100 mls/hr Vancomycin HCl (Vancomycin 1gm) 1 gm in 250 mls @ 167 mls/hr IVPB Q12H [facility] PRN Reason: Protocol Last Admin: 10/06/17 18:37 Dose: 167 mls/hr Dextrose/Sodium Chloride (Dextrose 5%/0.45% Ns 1000 Ml) 1,000 mls @ 125 mls/hr IV .Q8H [facility] Valproate Sodium 500 mg/ (Sodium Chloride) 105 mls @ 100 mls/hr IVPB Q12 [facility] Insulin Human Regular (Humulin R Low) 0 units SC ACHS [facility] PRN Reason: Protocol Last Admin: 10/06/17 21:10 Dose: Not Given Ipratropium [place] (Atrovent) 0.5 mg IH [id number] [facility] Last Admin: 10/06/17 19:52 Dose: 0.5 mg Isosorbide Dinitrate (Isordil) 10 mg PO Q8 [facility] Last Admin: 10/06/17 14:00 Dose: Not Given Lisinopril (Zestril) 10 mg PO DAILY [facility] Last Admin: 10/06/17 10:00 Dose: Not Given Metformin HCl (Glucophage) 500 mg PO BID [facility] Last Admin: 10/06/17 18:37 Dose: Not Given Mirtazapine (Remeron) 15 mg PO HS [facility] Last Admin: 10/05/17 21:27 Dose: Not Given Oxychlorosene Sodium (Clorpactin Wcs-90) 2 gm TOP Q12H [facility] Last Admin: 10/06/17 14:15 Dose: 2 gm Tamsulosin HCl (Flomax) 0.4 mg PO DAILY [facility] Last Admin: 10/06/17 10:00 Dose: Not Given - Labs Labs: 10/06/17 07:30 10/06/17 19:02 PT 13.4 SECONDS (9.4-12.5) H 10/04/17 13:45 INR 1.17 (0.93-1.08) H 10/04/17 13:45 APTT 27.1 Seconds (25.1-36.5) 10/04/17 13:45 - Constitutional Appears: Chronically Ill - Head Exam Head Exam: ATRAUMATIC, NORMOCEPHALIC - Eye Exam Additional comments: poor pupillary light reflex. - ENT Exam ENT Exam: Mucous Membranes Moist, Normal External Ear Exam, TM's Normal Bilaterally - Neck Exam Additional comments: torticolis - Respiratory Exam Respiratory Exam: Decreased Breath Sounds, NORMAL BREATHING PATTERN. absent: Rales, Rhonchi, Wheezes Additional comments: Left lower lobe infiltrate. - Cardiovascular Exam Cardiovascular Exam: REGULAR RHYTHM, RRR, +S1, +S2 - GI/Abdominal Exam GI & Abdominal Exam: Soft, Normal Bowel Sounds. absent: Distended, Tenderness - Extremities Exam Extremities Exam: Full ROM, Normal Inspection - Neurological Exam Additional comments: general weakness. Left facial twitching. Confused. Poorly responsive. - Skin Additional comments: Stage III sacral decubiti. Assessment and Plan - Assessment and Plan (Free Text) Assessment: 86 yo male with AMS and left facial twitching found at home. The patient has an extensive medical history that includes Dementia, HTN, DM, metastatic prostate cancer, hyperlipidemia, cervical spine disease, baseline torticolis, large decubiti, and hip fractures. The patient Chest X-ray shows left lower lobe pneumonia. Also has a sacral decubiti ulcer stage III. Seen my Neurology and Surgery. On Cefepime and IV Vancomycin for antibiotic coverage. Supportive care. Story cultures sent. Yeast in urine cultures. Spoke with Dr. Emanuel. Thank you for allowing me to particiapte in the care of the patient, we will follow with you.
[2017-10-06] MEDS: Valproate 500 MG in Sodium Chloride 0.9% 100 ML IVPB SCH (22:32)
--- NOTE | 2017-10-06 23:29 | CP.PCM.PN ---
Subjective - Date & Time of Evaluation Date of Evaluation: 10/06/17 Time of Evaluation: 17:25 Objective - Vital Signs/Intake and Output Vital Signs (last 24 hours): Temp Pulse Resp BP Pulse Ox 97.9 F 91 H 19 166/89 H 97 10/06/17 08:48 10/06/17 18:40 10/06/17 16:00 10/06/17 18:40 10/06/17 16:00 Intake and Output: 10/06/17 10/07/17 18:59 06:59 Intake Total 0 0 Output Total 1050 100 Balance -1050 -100 - Medications Medications: Current Medications Acetaminophen (Tylenol 325mg Tab) 650 mg PO Q4 PRN PRN Reason: Pain, Mild (1-3) Amlodipine Besylate (Norvasc) 5 mg PO DAILY [facility] Last Admin: 10/06/17 10:00 Dose: Not Given Aspirin (Aspirin Supp) 300 mg RC DAILY [facility] Last Admin: 10/06/17 18:40 Dose: 300 mg Carvedilol (Coreg) 25 mg PO BID [facility] Last Admin: 10/06/17 18:37 Dose: Not Given Clonidine HCl (Catapres) 0.2 mg PO TID [facility] Last Admin: 10/06/17 18:36 Dose: Not Given Docusate Sodium (Colace) 100 mg PO HS [facility] Last Admin: 10/06/17 21:03 Dose: Not Given Dronabinol (Marinol) 5 mg PO DAILY [facility] Last Admin: 10/06/17 10:00 Dose: Not Given Famotidine (Pepcid) 40 mg PO DAILY [facility] Last Admin: 10/06/17 10:00 Dose: Not Given Ferrous Sulfate (Feosol) 324 mg PO TID [facility] Last Admin: 10/06/17 18:37 Dose: Not Given Heparin Sodium (Porcine) (Heparin) 5,000 units SC Q8 [facility] PRN Reason: Protocol Last Admin: 10/06/17 21:06 Dose: 5,000 units Hydralazine HCl (Apresoline) 50 mg PO TID [facility] Last Admin: 10/06/17 18:36 Dose: Not Given Hydralazine HCl (Apresoline) 10 mg IVP Q6 [facility] Last Admin: 10/06/17 18:40 Dose: 10 mg Cefepime HCl (Maxipime 1gm) 1 gm in 100 mls @ 100 mls/hr IVPB Q12 [facility] PRN Reason: Protocol Last Admin: 10/06/17 21:13 Dose: 100 mls/hr Vancomycin HCl (Vancomycin 1gm) 1 gm in 250 mls @ 167 mls/hr IVPB Q12H [facility] PRN Reason: Protocol Last Admin: 10/06/17 18:37 Dose: 167 mls/hr Dextrose/Sodium Chloride (Dextrose 5%/0.45% Ns 1000 Ml) 1,000 mls @ 125 mls/hr IV .Q8H [facility] Valproate Sodium 500 mg/ (Sodium Chloride) 105 mls @ 100 mls/hr IVPB Q12 [facility] Last Admin: 10/06/17 22:32 Dose: 100 mls/hr Insulin Human Regular (Humulin R Low) 0 units SC ACHS [facility] PRN Reason: Protocol Last Admin: 10/06/17 21:10 Dose: Not Given Ipratropium [place] (Atrovent) 0.5 mg IH [id number] [facility] Last Admin: 10/06/17 19:52 Dose: 0.5 mg Isosorbide Dinitrate (Isordil) 10 mg PO Q8 [facility] Last Admin: 10/06/17 14:00 Dose: Not Given Lisinopril (Zestril) 10 mg PO DAILY [facility] Last Admin: 10/06/17 10:00 Dose: Not Given Metformin HCl (Glucophage) 500 mg PO BID [facility] Last Admin: 10/06/17 18:37 Dose: Not Given Mirtazapine (Remeron) 15 mg PO HS [facility] Last Admin: 10/05/17 21:27 Dose: Not Given Oxychlorosene Sodium (Clorpactin Wcs-90) 2 gm TOP Q12H [facility] Last Admin: 10/06/17 14:15 Dose: 2 gm Tamsulosin HCl (Flomax) 0.4 mg PO DAILY [facility] Last Admin: 10/06/17 10:00 Dose: Not Given - Labs Labs: 10/06/17 07:30 10/06/17 19:02 PT 13.4 SECONDS (9.4-12.5) H 10/04/17 13:45 INR 1.17 (0.93-1.08) H 10/04/17 13:45 APTT 27.1 Seconds (25.1-36.5) 10/04/17 13:45 Assessment and Plan (1) Prostate cancer metastatic to bone Status: Acute (2) Decubitus skin ulcer Status: Acute (3) Pneumonia Status: Acute (4) Altered mental status Status: Acute
[2017-10-07] MEDS: Ipratropium 0.02% Inhal Soln (0.5 mg/2.5 ml) UD IH SCH ×4 (00:39→11:37)
[2017-10-07] MEDS ORDERED: Vancomycin 1gm in NS 250ml 1 GM/250 ML BAG IVPB SCH (05:27)
[2017-10-07 06:36] LABS: HEMOGLOBIN 8.8 g/dL (14.0-18.0); MEAN CORPUSCULAR HEMOGLOBIN 27.2 pg (25.0-35.0); MEAN CORPUSCULAR HGB CONC 31.3 g/dl (31.0-37.0); RBC 3.23 10^6/uL (3.5-6.1); RED CELL DISTRIBUTION WIDTH 17.9 % (11.5-14.5); WHITE BLOOD COUNT 5.6 10^3/ul (4.5-11.0)
[2017-10-07] MEDS: Oxychlorosene Topical 2 gm Packet TOP SCH (06:50)
[2017-10-07 08:20] VITALS: BP 186/104; PULSE 79; RESP 18; TEMP 97.8; O2SAT 100
--- NOTE | 2017-10-07 09:52 | CP.PCM.CON ---
History of Present Illness - History of Present Illness History of Present Illness: Palliative consult requested by Dr Deidre Emanuel Reason: Goals of care 86 year old male with history ot metastatic prostate cancer, CVA,dementia who present with lethargy, altered mental status and left side facial twitching. Family denied slurred speech, unilateral weakness,fever, chills, nausea, vomiting, pain or shortness of breath.Code stroke called. CT scan showed no acute intracranial abnormality. Chest x ray revealed left sided infiltrate and pleural effusion as well as metastatic disease. Labs; Hgb 9.5, HCT 29.9, NA 153, K 2.9, Eliu. 7.6,+ UTI. PMHx: prostate cancer metastatic to bone, right hip replacement, hypoglycemia, pneumonia, HTN, dementia, sacral decubiti,iCVA. Social History: Non smoker, no alcohol or drug use. , lives with daughter. Family History: HTN Advance Care Planning: The patient is DNR/DNI. Review of Systems: As per HPI, unable to obtain complete review patient is altered and non verbal. Past Patient History - Infectious Disease Hx of Infectious Diseases: None - Past Medical History & Family History Past Medical History?: Yes - Past Social History Smoking Status: Never Smoked - CARDIAC Hx Hypertension: Yes - PULMONARY Hx Respiratory Disorders: No - NEUROLOGICAL Hx Neurological Disorder: Yes Hx Dementia: Yes - HEENT Hx HEENT Problems: No - RENAL Hx Chronic Kidney Disease: No - ENDOCRINE/METABOLIC Hx Endocrine Disorders: Yes Hx Diabetes Mellitus Type 2: Yes - HEMATOLOGICAL/ONCOLOGICAL Hx Blood Disorders: Yes Hx Cancer: Yes (prostate) - INTEGUMENTARY Hx Dermatological Problems: No - MUSCULOSKELETAL/RHEUMATOLOGICAL Hx Falls: Yes Hx Fractures: Yes (hip) - GASTROINTESTINAL Hx Gastrointestinal Disorders: No - GENITOURINARY/GYNECOLOGICAL Hx Genitourinary Disorders: Yes (URINARY FREQUENCY) - PSYCHIATRIC Hx Psychophysiologic Disorder: No - SURGICAL HISTORY Hx Surgeries: No - ANESTHESIA Hx Anesthesia: No Hx Anesthesia Reactions: No Meds Allergies/Adverse Reactions: Allergies Allergy/AdvReac Type Severity Reaction Status Date / Time No Known Allergies Allergy Verified 10/04/17 13:26 - Medications Medications: Current Medications Acetaminophen (Tylenol 325mg Tab) 650 mg PO Q4 PRN PRN Reason: Pain, Mild (1-3) Amlodipine Besylate (Norvasc) 5 mg PO DAILY [facility] Last Admin: 10/06/17 10:00 Dose: Not Given Aspirin (Aspirin Supp) 300 mg RC DAILY [facility] Last Admin: 10/06/17 18:40 Dose: 300 mg Carvedilol (Coreg) 25 mg PO BID [facility] Last Admin: 10/06/17 18:37 Dose: Not Given Clonidine HCl (Catapres) 0.2 mg PO TID [facility] Last Admin: 10/06/17 18:36 Dose: Not Given Docusate Sodium (Colace) 100 mg PO HS [facility] Last Admin: 10/06/17 21:03 Dose: Not Given Dronabinol (Marinol) 5 mg PO DAILY [facility] Last Admin: 10/06/17 10:00 Dose: Not Given Famotidine (Pepcid) 40 mg PO DAILY [facility] Last Admin: 10/06/17 10:00 Dose: Not Given Ferrous Sulfate (Feosol) 324 mg PO TID [facility] Last Admin: 10/06/17 18:37 Dose: Not Given Heparin Sodium (Porcine) (Heparin) 5,000 units SC Q8 [facility] PRN Reason: Protocol Last Admin: 10/07/17 05:38 Dose: 5,000 units Hydralazine HCl (Apresoline) 50 mg PO TID [facility] Last Admin: 10/06/17 18:36 Dose: Not Given Hydralazine HCl (Apresoline) 10 mg IVP Q6 [facility] Last Admin: 10/07/17 05:34 Dose: 10 mg Cefepime HCl (Maxipime 1gm) 1 gm in 100 mls @ 100 mls/hr IVPB Q12 [facility] PRN Reason: Protocol Last Admin: 10/06/17 21:13 Dose: 100 mls/hr Dextrose/Sodium Chloride (Dextrose 5%/0.45% Ns 1000 Ml) 1,000 mls @ 125 mls/hr IV .Q8H [facility] Last Admin: 10/07/17 00:02 Dose: 125 mls/hr Valproate Sodium 500 mg/ (Sodium Chloride) 105 mls @ 100 mls/hr IVPB Q12 [facility] Last Admin: 10/06/17 22:32 Dose: 100 mls/hr Vancomycin HCl (Vancomycin 1gm) 1 gm in 250 mls @ 167 mls/hr IVPB 0600,1800 [facility] PRN Reason: Protocol Last Admin: 10/07/17 05:39 Dose: 167 mls/hr Insulin Human Regular (Humulin R Low) 0 units SC ACHS [facility] PRN Reason: Protocol Last Admin: 10/06/17 21:10 Dose: Not Given Ipratropium [place] (Atrovent) 0.5 mg IH [id number] [facility] Last Admin: 10/07/17 07:17 Dose: 0.5 mg Isosorbide Dinitrate (Isordil) 10 mg PO Q8 [facility] Last Admin: 10/06/17 14:00 Dose: Not Given Lisinopril (Zestril) 10 mg PO DAILY [facility] Last Admin: 10/06/17 10:00 Dose: Not Given Metformin HCl (Glucophage) 500 mg PO BID [facility] Last Admin: 10/06/17 18:37 Dose: Not Given Mirtazapine (Remeron) 15 mg PO HS [facility] Last Admin: 10/05/17 21:27 Dose: Not Given Oxychlorosene Sodium (Clorpactin Wcs-90) 2 gm TOP Q12H [facility] Last Admin: 10/07/17 06:50 Dose: 2 gm Tamsulosin HCl (Flomax) 0.4 mg PO DAILY [facility] Last Admin: 10/06/17 10:00 Dose: Not Given Physical Exam - Constitutional Appears: Cachectic, Chronically Ill - Head Exam Head Exam: NORMOCEPHALIC - Eye Exam Eye Exam: Normal appearance, PERRL - ENT Exam ENT Exam: Mucous Membranes Moist, Normal Oropharynx - Neck Exam Neck exam: Positive for: Normal Inspection - Respiratory Exam Respiratory Exam: Decreased Breath Sounds, Rhonchi, NORMAL BREATHING PATTERN - Cardiovascular Exam Cardiovascular Exam: REGULAR RHYTHM, +S1, +S2 - GI/Abdominal Exam GI & Abdominal Exam: Diminished Bowel Sounds, Soft - Extremities Exam Additional comments: edematous - Back Exam Additional comments: large stage 2 sacral decubiti - Neurological Exam Neurological exam: Altered - Skin Skin Exam: Pallor, Pallor - Additional Findings Additional findings: Palliative performance scale rating 30 % Results - Vital Signs Recent Vital Signs: Last Vital Signs Temp 97.8 F 10/07/17 08:20 Pulse 79 10/07/17 08:20 Resp 18 10/07/17 08:20 BP 186/104 H 10/07/17 08:20 Pulse Ox 100 10/07/17 08:20 - Labs Result Diagrams: 10/07/17 05:30 10/06/17 19:02 Labs: Laboratory Results - last 24 hr 02/12/18 02/12/18 02/12/18 11:08 17:41 19:02 WBC RBC Hgb Hct MCV MCH MCHC RDW Plt Count MPV Sodium 151 H Potassium 2.9 L* Chloride 118 H Carbon Dioxide 24 Anion Gap 12 BUN 14 Creatinine 0.8 Est GFR ( Amer) > 60 Est GFR (Non-Af Amer) > 60 POC Glucose (mg/dL) 78 96 Random Glucose 115 H Calcium 7.6 L 10/06/17 10/07/17 21:09 05:30 WBC 5.6 RBC 3.23 L Hgb 8.8 L Hct 28.1 L MCV 87.0 MCH 27.2 MCHC 31.3 RDW 17.9 H Plt Count 196 MPV 9.0 Sodium Potassium Chloride Carbon Dioxide Anion Gap BUN Creatinine Est GFR ( Amer) Est GFR (Non-Af Amer) POC Glucose (mg/dL) 118 H Random Glucose Calcium Assessment & Plan - Assessment and Plan (Free Text) Assessment: 86 year old male with history of dementia, metastatic prostate cancer,dementia, HTN who is admitted with left pleural effusion, seizures, UTI, sepsis, dyspahgia , sacral decubtiti and altered mental status. Patients daughter Jerri at bedside. Dr. Emanuel discussed medical issue and prognosis with family. Option for hospice care offered. Hospice services explained in detail. Questions answered. Family understands that by agreeing to hospice care,life prolonging measures with be withheld and patient will be pain and symptom management. Family is agreeable to this plan. Psychosocial support provided. Jessica Guthrie met with [place] hospice fellow. Consents signed for [facility] hospice care.Patient will be admitted under [facility] services for pain, seizure and wound care management. Time spent with family in goals of care, hospice and end of life discussion, 45 minutes Plan: Hospice evaluation for [facility] services. Discharge and readmit to [facility] services. Palliative support in establishing goals of care
[2017-10-07 10:13] LABS: ALB/GLOB RATIO 0.7 (1.1-1.8); ALBUMIN 2.1 g/dL (3.0-4.8); ALT/SGPT 19 U/L (7-56); AST/SGOT 26 U/L (17-59); BLOOD UREA NITROGEN 14 mg/dL (7-21); CALCIUM 7.8 mg/dL (8.4-10.5); GFR AFRICAN-AMERICAN > 60; GFR NON-AFRICAN AMERICAN > 60
[2017-10-07] MEDS: Valproate 500 MG in Sodium Chloride 0.9% 100 ML IVPB SCH (10:48)
[2017-10-07] MEDS: Cefepime 1gm in NS 100ml 1 GM/100 ML BAG IVPB SCH (11:12)
== END 2017-10-07 11:47 | disposition hospice, inpatient (51) | DRG 193 ==
LOC: ED 12:57 → ERH 16:05 → 3RNO 23:19
PROVIDERS: ADMIT Internal Medicine; ATTEND Internal Medicine
DX: J18.9 Pneumonia, unspecified organism (principal); L89.153 Pressure ulcer of sacral region, stage 3; C79.51 Secondary malignant neoplasm of bone; J90 Pleural effusion, not elsewhere classified; E11.9 Type 2 diabetes mellitus without complications; F03.90 Unspecified dementia, unspecified severity, without behavioral disturbance, psychotic disturbance, mood disturbance, and anxiety; I10 Essential (primary) hypertension; E78.5 Hyperlipidemia, unspecified; M43.6 Torticollis; R25.3 Fasciculation; M48.8X2 Other specified spondylopathies, cervical region; Z96.641 Presence of right artificial hip joint; Z66 Do not resuscitate; Z51.5 Encounter for palliative care; Z85.46 Personal history of malignant neoplasm of prostate; Z79.82 Long term (current) use of aspirin; Z79.84 Long term (current) use of oral hypoglycemic drugs

== ENCOUNTER 2017-10-07 11:47 | Inpatient (IN) | payer OTHER ==
[2017-10-07] MEDS ORDERED: Morphine PCA 1 mg/ml (30ml) 30 ML IV PRN (12:13)
[2017-10-07] MEDS: Morphine PCA 1 mg/ml (30ml) 30 ML IV PRN (15:03)
[2017-10-08 11:15] VITALS: RESP 22
--- NOTE | 2017-10-08 11:35 | CP.PCM.CON ---
History of Present Illness - History of Present Illness History of Present Illness: palliative consult per Dr Anusha Emanuel Reason: End of life care 86 year old male with history of dementia, CVA , sacral ulcer who was admitted to acute care with seizures, altered mental status, dysphagia, sacral ulcer and sepsis. The patient has since transitioned to hospice care for management of seizures, pain and wound care. PMHX: dementia, pneumonia, sepsis, CVA, HTN,HLD, DM, hip replacement. Social History: Non smoker, no alcohol or drug use.Lives with family Family History: HTN Advance Planning: He is DNR/DNI Review of Systems: As per HPI, patient is comatose/no verbal unable to obtain. Past Patient History - Infectious Disease Hx of Infectious Diseases: None - Past Medical History & Family History Past Medical History?: Yes - Past Social History Smoking Status: Never Smoked - CARDIAC Hx Hypertension: Yes - PULMONARY Hx Respiratory Disorders: No - NEUROLOGICAL Hx Neurological Disorder: Yes Hx Dementia: Yes - HEENT Hx HEENT Problems: No - RENAL Hx Chronic Kidney Disease: No - ENDOCRINE/METABOLIC Hx Endocrine Disorders: Yes Hx Diabetes Mellitus Type 2: Yes - HEMATOLOGICAL/ONCOLOGICAL Hx Blood Disorders: Yes Hx Cancer: Yes (prostate) - INTEGUMENTARY Hx Dermatological Problems: No - MUSCULOSKELETAL/RHEUMATOLOGICAL Hx Falls: Yes Hx Fractures: Yes (hip) - GASTROINTESTINAL Hx Gastrointestinal Disorders: No - GENITOURINARY/GYNECOLOGICAL Hx Genitourinary Disorders: Yes (URINARY FREQUENCY) - PSYCHIATRIC Hx Psychophysiologic Disorder: No - SURGICAL HISTORY Hx Surgeries: No - ANESTHESIA Hx Anesthesia: No Hx Anesthesia Reactions: No Meds Allergies/Adverse Reactions: Allergies Allergy/AdvReac Type Severity Reaction Status Date / Time No Known Allergies Allergy Verified 10/04/17 13:26 - Medications Medications: Current Medications Acetaminophen (Tylenol 650 Mg Supp) 650 mg RC Q4H PRN PRN Reason: Fever >100.4 F Morphine Sulfate (Morphine Professor Of Law 1 Mg/Ml) 30 mls @ 1 mls/hr IV PRN PRN; Protocol ; 1 MG/HR PRN Reason: HADOOP ENGINEER PER MD ORDER Last Admin: 10/07/17 15:03 Dose: 1 mg/hr, 1 mls/hr Lorazepam (Ativan) 1 mg IVP Q12H [facility] PRN Reason: Protocol Last Admin: 10/08/17 05:59 Dose: 1 mg Scopolamine (Transderm-Scop) 1 patch TD Q3D [facility] Last Admin: 10/07/17 13:23 Dose: 1 patch Physical Exam - Constitutional Appears: Cachectic, Chronically Ill - Eye Exam Eye Exam: Normal appearance Additional comments: sluggish - ENT Exam ENT Exam: Normal Oropharynx - Neck Exam Neck exam: Positive for: Normal Inspection - Respiratory Exam Respiratory Exam: Decreased Breath Sounds Additional comments: upper airway congestion - Cardiovascular Exam Cardiovascular Exam: REGULAR RHYTHM, +S1, +S2 - GI/Abdominal Exam GI & Abdominal Exam: Diminished Bowel Sounds, Soft - Extremities Exam Additional comments: edematous - Back Exam Additional comments: large unstageable sacral ulcer - Neurological Exam Neurological exam: Altered - Skin Skin Exam: Dry - Additional Findings Additional findings: performance scale 20 % Results - Vital Signs Recent Vital Signs: Last Vital Signs Temp 98.1 F 10/08/17 06:00 Pulse 79 10/08/17 06:00 Resp 22 10/08/17 06:00 BP 150/85 10/08/17 06:00 Pulse Ox 98 10/08/17 06:00 Assessment & Plan - Assessment and Plan (Free Text) Assessment: 86 year old male with history of dementia, sepsis, pneumonia, TIA, sacral ulcer who is admitted under [place] hospice services for management of pain, seizures and wound care. The patient is comatose, pupils extremely sluggish. Upper airway secretions. Family at bedside, impending signs of explained. Psychosocial support and and end of life counseling provided. Time spent with family in counseling, 30 minutes. Plan: Air way secretions: Benadryl 50 mg IV scheduled. Scopolamine transdermal patch.Gentle suctioning as needed. Pain: Morphine continuos infusion 1 mg /hr. Seizure: Ativan 1mg IV scheduled every 12 hours. Tylenol 650mg RC every 4 hours as needed for fever over 100 F. End of life counseling
[2017-10-08] MEDS: DiphenhydrAMINE 50 mg/ml Inj IVP SCH ×2 (12:00→23:47)
[2017-10-08 16:23] VITALS: BP 137/79; PULSE 80; TEMP 98; O2SAT 95
[2017-10-08] MEDS: Morphine PCA 1 mg/ml (30ml) 30 ML IV PRN (19:52)
--- NOTE | 2017-10-08 22:03 | CP.PCM.HP ---
Past Patient History - Infectious Disease Hx of Infectious Diseases: None - Past Medical History & Family History Past Medical History?: Yes - Past Social History Smoking Status: Never Smoked - CARDIAC Hx Hypertension: Yes - PULMONARY Hx Respiratory Disorders: No - NEUROLOGICAL Hx Neurological Disorder: Yes Hx Dementia: Yes - HEENT Hx HEENT Problems: No - RENAL Hx Chronic Kidney Disease: No - ENDOCRINE/METABOLIC Hx Endocrine Disorders: Yes Hx Diabetes Mellitus Type 2: Yes - HEMATOLOGICAL/ONCOLOGICAL Hx Blood Disorders: Yes Hx Cancer: Yes (prostate) - INTEGUMENTARY Hx Dermatological Problems: No - MUSCULOSKELETAL/RHEUMATOLOGICAL Hx Falls: Yes Hx Fractures: Yes (hip) - GASTROINTESTINAL Hx Gastrointestinal Disorders: No - GENITOURINARY/GYNECOLOGICAL Hx Genitourinary Disorders: Yes (URINARY FREQUENCY) - PSYCHIATRIC Hx Psychophysiologic Disorder: No - SURGICAL HISTORY Hx Surgeries: No - ANESTHESIA Hx Anesthesia: No Hx Anesthesia Reactions: No Meds Allergies/Adverse Reactions: Allergies Allergy/AdvReac Type Severity Reaction Status Date / Time No Known Allergies Allergy Verified 10/04/17 13:26 Results - Vital Signs Recent Vital Signs: Last Vital Signs Temp 98 F 10/08/17 16:22 Pulse 80 10/08/17 16:22 Resp 22 10/08/17 16:22 BP 137/79 10/08/17 16:22 Pulse Ox 95 10/08/17 16:22
--- NOTE | 2017-10-08 22:07 | CP.PCM.PN ---
Subjective - Date & Time of Evaluation Date of Evaluation: 10/08/17 Time of Evaluation: 08:05 Objective - Vital Signs/Intake and Output Vital Signs (last 24 hours): Temp Pulse Resp BP Pulse Ox 98 F 80 22 137/79 95 10/08/17 16:22 10/08/17 16:22 10/08/17 16:22 10/08/17 16:22 10/08/17 16:22 Intake and Output: 10/08/17 10/09/17 18:59 06:59 Intake Total 30 Output Total 100 Balance -70 - Medications Medications: Current Medications Acetaminophen (Tylenol 650 Mg Supp) 650 mg RC Q4H PRN PRN Reason: Fever >100.4 F Diphenhydramine HCl (Benadryl) 50 mg IVP Q12H [facility] Last Admin: 10/08/17 12:00 Dose: 50 mg Morphine Sulfate (Morphine Resident Care Associate 1 Mg/Ml) 30 mls @ 1 mls/hr IV PRN PRN; Protocol ; 1 MG/HR PRN Reason: SLAB INSTALLER PER MD ORDER Last Admin: 10/08/17 19:52 Dose: 1 mg/hr, 1 mls/hr Lorazepam (Ativan) 1 mg IVP Q12H [facility] PRN Reason: Protocol Last Admin: 10/08/17 17:14 Dose: 1 mg Scopolamine (Transderm-Scop) 1 patch TD Q3D [facility] Last Admin: 10/07/17 13:23 Dose: 1 patch
--- NOTE | 2017-10-09 04:10 | CP.PCM.PN ---
Subjective - Date & Time of Evaluation Date of Evaluation: 10/09/17 Time of Evaluation: 04:08 - Subjective Subjective: pt unresposive,with no pulse no bp , not breathing . pt at4:5 am . pt was hospice. Objective - Vital Signs/Intake and Output Vital Signs (last 24 hours): Temp Pulse Resp BP Pulse Ox 98 F 80 22 137/79 95 10/08/17 16:22 10/08/17 16:22 10/08/17 16:22 10/08/17 16:22 10/08/17 16:22 Intake and Output: 10/08/17 10/09/17 18:59 06:59 Intake Total 30 Output Total 100 Balance -70 - Medications Medications: Current Medications Acetaminophen (Tylenol 650 Mg Supp) 650 mg RC Q4H PRN PRN Reason: Fever >100.4 F Diphenhydramine HCl (Benadryl) 50 mg IVP Q12H [facility] Last Admin: 10/08/17 23:47 Dose: 50 mg Morphine Sulfate (Morphine Survey Research Teacher 1 Mg/Ml) 30 mls @ 1 mls/hr IV PRN PRN; Protocol ; 1 MG/HR PRN Reason: PATTERNMAKER APPRENTICE WOOD PER MD ORDER Last Admin: 10/08/17 19:52 Dose: 1 mg/hr, 1 mls/hr Lorazepam (Ativan) 1 mg IVP Q12H [facility] PRN Reason: Protocol Last Admin: 10/08/17 17:14 Dose: 1 mg Scopolamine (Transderm-Scop) 1 patch TD Q3D [facility] Last Admin: 10/07/17 13:23 Dose: 1 patch Assessment and Plan - Assessment and Plan (Free Text) Assessment: at 4:5 am .hospice . pmd informed by nurse.
--- NOTE | 2017-10-09 08:39 | CP.PCM.DIS ---
Provider - Provider Date of Admission: 10/07/17 11:47 Attending physician: Shira Emanuel MD Primary care physician: Jose Juan Burleson MD Time Spent in preparation of Discharge (in minutes): 25 Diagnosis - Discharge Diagnosis (1) Status: Acute Comment: Inpatient Hospice care Discharge Plan - Follow Up Plan Condition: Disposition: WITH WITHOUT AUTOPSY Referrals: Jose Juan Burleson MD [Primary Care Provider] -
--- NOTE | 2017-10-13 07:01 | PQF GENQUE ---
This form is a permanent part of the medical record Dr. Emanuel, Patient was in the hospice care floor and . Kindly provide us a final diagnosis (discharge summary in DRAFT). Thank you. Clarification of your documentation is requested to better reflect the severity of illness and intensity of treatment of your patient. Indicators present [] Specify: [] [] Specify: [] [] Specify: [] [] Specify: [] Location in the medical record that reflects the above clinical findings: [] Treatment Provided: [] PHYSICIAN'S RESPONSE Based on your medical judgment of the clinical indicators outlined above please clarify the following: [X] Practitioner response: Altered Menta Status, Sepsis, Hypernatremia, Stage IV Prostate Cancer, and under inpatient Hospice care [] If unable to determine, please check the box, sign and date. Present On Admission (POA) Indicator: [X] Present at the time of admission [] Not present at the time of admission [] Clinically Undetermined In responding to this query, please exercise your independent professional judgment. The fact that a question is asked does not imply that any particular answer is desired or expected. Thank you for your clarification on this documentation. If you have any questions please call:[ ] * Thank you, [ ]MELISA EASTMANclinical documentation developer [email or web address]
== END 2017-10-09 04:05 | DRG 871 ==
LOC: 3RNO 11:47 → 3RSO 17:07
PROVIDERS: ADMIT Internal Medicine; ATTEND Internal Medicine
DX: A41.9 Sepsis, unspecified organism (principal); J18.9 Pneumonia, unspecified organism; R40.20 Unspecified coma; E87.0 Hyperosmolality and hypernatremia; Z51.5 Encounter for palliative care; Z66 Do not resuscitate; L89.150 Pressure ulcer of sacral region, unstageable; C61 Malignant neoplasm of prostate; E11.9 Type 2 diabetes mellitus without complications; R56.9 Unspecified convulsions; F03.90 Unspecified dementia, unspecified severity, without behavioral disturbance, psychotic disturbance, mood disturbance, and anxiety; I10 Essential (primary) hypertension; Z96.649 Presence of unspecified artificial hip joint; E78.5 Hyperlipidemia, unspecified; Z79.84 Long term (current) use of oral hypoglycemic drugs; Z86.73 Personal history of transient ischemic attack (TIA), and cerebral infarction without residual deficits